=== PATIENT | female | born 1980 | race Caucasian/White ===

== ENCOUNTER 2017-07-14 17:52 | Emergency (ER) | payer MEDICAID ==
[~2017-07-14] VITALS: Ht 157.5 cm; Wt 99.8 kg
[2017-07-14 18:16] VITALS: BP 151/90
--- NOTE | 2017-07-14 19:33 | NUR ---
Patient to bed 05.
--- NOTE | 2017-07-14 19:40 | NUR ---
PATIENT PRESENTS TO ED WITH C/O LEFT ANKLE PAIN . PT DENIES N/V/D; SKIN IS PINK/WARM/DRY; AAOX4 WITH EVEN AND STEADY GAIT; LUNGS CLEAR BL; HR EVEN AND REGULAR; PT DENIES ANY FEVER, CP, SOB, OR COUGH AT THIS TIME; PATIENT STATES PAIN OF 7/10 AT THIS TIME; VSS; PATIENT POSITIONED FOR COMFORT; HOB ELEVATED; BEDRAILS UP X2; BED DOWN. ER MD MADE AWARE OF PT STATUS.
--- NOTE | 2017-07-14 19:45 | NUR ---
APARNA Pink evaluating patient at bedside.
[2017-07-14 21:00] VITALS: BP 142/85
--- NOTE | 2017-07-14 21:00 | NUR ---
Patient discharged with v/s stable. Written and verbal after care instructions given and explained. Patient verbalized understanding. Ambulatory with steady gait. All questions addressed prior to discharge. Advised to follow up with PMD.
== END 2017-07-14 21:00 | disposition home or self-care (01) ==
LOC: MED 17:52
DX: S82.65XA Nondisplaced fracture of lateral malleolus of left fibula, initial encounter for closed fracture (principal); W01.0XXA Fall on same level from slipping, tripping and stumbling without subsequent striking against object, initial encounter; Y93.89 Activity, other specified; Y92.009 Unspecified place in unspecified non-institutional (private) residence as the place of occurrence of the external cause; Y99.8 Other external cause status
CPT/HCPCS: 29515; 73610; 99283; 99284

== ENCOUNTER 2018-05-04 06:10 | Emergency (ER) | payer MEDICAID ==
[~2018-05-04] VITALS: Ht 157.5 cm; Wt 108.9 kg
[2018-05-04 06:18] VITALS: BP 127/100
--- NOTE | 2018-05-04 06:21 | NUR ---
TO BED # 2 AMBULATORY , REPORT GIVEN TO GIDEON GONZÁLES
--- NOTE | 2018-05-04 06:26 | NUR ---
Dr. Lemus evaluating patient at bedside.
[2018-05-04] MEDS ORDERED: FAMOTIDINE 20 MG TAB PO ONE (06:35)
[2018-05-04] MEDS ORDERED: diphenhydrAMINE 50 MG/ML VIAL IM ONE (06:35)
[2018-05-04] MEDS ORDERED: DEXAMETHASONE 10 MG/ML VIAL IM ONE (06:35)
--- NOTE | 2018-05-04 06:58 | NUR ---
38Y/F C/O RASH S/P TATTOO LAST WEEK , RED RAISED BUMPS NOTED TO CHEST AREA AND REDNESS TO CHIN AREA. PT DENIES SOB, CHEST PAIN. PT STATES SHE GOT A TATTOO LAST WEEK AND HAS NOTICIED A RASH TO GENERALIZED CHEST AREA. NO PMH, NKDA
--- NOTE | 2018-05-04 07:20 | NUR ---
Pt report given to ELIECER OLEA . Transfer of care at this time.
--- NOTE | 2018-05-04 07:20 | NUR ---
RECEIVED REPORT FROM GIDEON GONZÁLES FOR CONTINUITY OF CARE. PT TALKING WITH FAMILY AT BEDSIDE IN NO APPEARENT DISTRESS. WILL CONTINUE TO MONITOR.
[2018-05-04 07:45] VITALS: BP 128/94
--- NOTE | 2018-05-04 07:45 | NUR ---
Patient discharged with v/s stable. Written and verbal after care instructions given and explained. Patient alert, oriented and verbalized understanding of instructions. Ambulatory with steady gait. All questions addressed prior to discharge. ID band removed. Patient advised to follow up with PMD. Rx of PEPCID 20MG, PREDNISONE 50MG, [id number] given. Patient educated on indication of medication including possible reaction and side effects. Opportunity to ask questions provided and answered.
== END 2018-05-04 07:45 | disposition home or self-care (01) ==
LOC: MED 06:10
DX: L29.9 Pruritus, unspecified (principal)
CPT/HCPCS: 96372; 99284; J1100; J1200

== ENCOUNTER 2019-10-07 10:30 | Emergency (ER) | payer MEDICAID ==
[~2019-10-07] VITALS: Ht 157.5 cm; Wt 104.3 kg
[2019-10-07 10:42] VITALS: BP 147/102
--- NOTE | 2019-10-07 10:51 | NUR ---
PATIENT AMBULATE TO BED 9.
--- NOTE | 2019-10-07 10:55 | NUR ---
PT C/O R HIP PAIN THAT RADIATES TO R KNEE X 3 DAYS. PT STATES PAIN "FEEL LIKE AN BURN" AND RATES PAIN 7/10 AT THIS TIME AND STATES, "IT HURTS TO PUT PRESSURE ON IT". PT DENIES INJURY OR TRAUMA TO HIP AND KNEE. NO REDNESS OR DEFORMITIES NOTED AT R KNEE. PT POSITONED FOR COMFORT. ER MD TO SEE PT. ALLERGY: SEASONAL HX: DENIES RX: DENIES
--- NOTE | 2019-10-07 11:18 | NUR ---
Patient being evaluated by ER MD RAMIREZ at bedside.
[2019-10-07] MEDS ORDERED: KETOROLAC 30 MG/ML VIAL IM ONE (11:30)
[2019-10-07 13:14] VITALS: BP 137/84
--- NOTE | 2019-10-07 13:14 | NUR ---
Patient discharged with v/s stable. Written and verbal after care instructions given and explained. Pt encouraged to rest, ice right knee 3-4 times a day. Pt also instructed to alternate between naproxen and tylenol. Patient alert, oriented and verbalized understanding of instructions. Ambulatory with steady gait. All questions addressed prior to discharge. ID band removed. Patient advised to follow up with PMD. Rx of NAPROSYN 500MG was given. Patient educated on indication of medication including possible reaction and side effects. Opportunity to ask questions provided and answered.
== END 2019-10-07 13:14 | disposition home or self-care (01) ==
LOC: MED 10:30
DX: S83.91XA Sprain of unspecified site of right knee, initial encounter (principal); M54.2 Cervicalgia; J45.909 Unspecified asthma, uncomplicated; X58.XXXA Exposure to other specified factors, initial encounter; Y93.89 Activity, other specified; Y92.89 Other specified places as the place of occurrence of the external cause; Y99.8 Other external cause status
CPT/HCPCS: 73562; 96372; 99283; J1885

== ENCOUNTER 2019-11-28 12:28 | Emergency (ER) | payer MEDICAID ==
[~2019-11-28] VITALS: Ht 157.5 cm; Wt 99.8 kg
[2019-11-28 12:49] VITALS: BP 160/101
--- NOTE | 2019-11-28 12:55 | NUR ---
WAIT AT LOBBY.
--- NOTE | 2019-11-28 14:58 | NUR ---
PT AMBULATED TO ER BED 04
[2019-11-28 15:41] VITALS: BP 124/75
== END 2019-11-28 15:37 | disposition home or self-care (01) ==
LOC: MED 12:28
DX: L25.9 Unspecified contact dermatitis, unspecified cause (principal)
CPT/HCPCS: 99283

== ENCOUNTER 2020-03-27 06:28 | Emergency (ER) | payer MEDICAID ==
[~2020-03-27] VITALS: Ht 157.5 cm; Wt 99.8 kg
[2020-03-27 06:35] VITALS: BP 123/91
--- NOTE | 2020-03-27 06:43 | NUR ---
39 Y/O FEMALE C/O FACIAL RASH AROUND THE EYES, ON CHEEKS, AND UNDER CHIN. 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 PT DENIES CHANGNING HER FACIAL HYGIENE ROUTINE. PT DENIES ANY TRAUMA. PT STATES LAST FLARE UP WAS APPROXIMATELY 1 YEAR AGO. PT TOOK ZYRTEC 10MG AT 430AM THIS MORNING . PT TALKING IN FULL SENTENCES, AIRWAY PATENT, PT 100% O2 SAT ON ROOM AIR, RR 18 EVEN AND UNLABORED . DENIES N/V/D; AAOX4 WITH EVEN AND STEADY GAIT; PT DENIES ANY FEVER, CP, SOB, OR COUGH AT THIS TIME; PATIENT STATES PAIN OF 5/10 AT THIS TIME; VSS; PATIENT SITTING IN CHAIR ; MEDICAL HX: ASTHMA NKA
[2020-03-27] MEDS ORDERED: DEXAMETHASONE 10 MG/ML VIAL IM ONE (07:10)
--- NOTE | 2020-03-27 07:21 | NUR ---
MEDICATED WRITTEN---PT SITTING AT BEDSIDE CHAIR---NO ACTIVE SCRATCHING AWAITS DISPO HOME
[2020-03-27 07:32] VITALS: BP 123/91
--- NOTE | 2020-03-27 07:32 | NUR ---
Patient discharged with v/s stable. Written and verbal after care instructions given and explained. Patient alert, oriented and verbalized understanding of instructions. Ambulatory with to car. All questions addressed prior to discharge. ID band removed. Patient advised to follow up with PMD. Rx of KETOTIFEN FUMARATE/ [facility] HYDROCORTISONE given. Patient educated on indication of medication including possible reaction and side effects. Opportunity to ask questions provided and answered.
== END 2020-03-27 07:32 | disposition home or self-care (01) ==
LOC: MED 06:28
DX: H10.13 Acute atopic conjunctivitis, bilateral (principal); J30.2 Other seasonal allergic rhinitis; J45.909 Unspecified asthma, uncomplicated
CPT/HCPCS: 96372; 99283; J1100

== ENCOUNTER 2020-08-28 12:23 | Emergency (ER) | payer MEDICAID ==
[~2020-08-28] VITALS: Ht 157.5 cm; Wt 106.4 kg
[2020-08-28 12:26] VITALS: BP 146/80
--- NOTE | 2020-08-28 12:34 | NUR ---
PATIENT AMBULATED TO ER BED 07
--- NOTE | 2020-08-28 12:36 | NUR ---
Dr Esposito at bedside examining pt
--- NOTE | 2020-08-28 12:46 | NUR ---
40 Y/O FEMALE C/O RIGHT SHOULDER PAIN S/P FALLING ON RIGHT SHOULDER LAST NIGHT. PATIENT STATES SHE EXTENDED SHOULDER OUT AND ABOUT HEAD AND FELL, SHE STATES SHE FEELS LIKE SHE TORE SOMETHING. PATIENT IS ABLE TO PERFORM ROM WITH PAIN. RADIAL PULSES PRESENT. NO OBVIOUS DEFORMITY NOTED.
[2020-08-28] MEDS: KETOROLAC 30 MG/ML VIAL IM ONE (12:58)
--- NOTE | 2020-08-28 13:14 | NUR ---
PT PLACED IN RIGHT SHOULDER SLING
== END 2020-08-28 13:20 | disposition home or self-care (01) ==
LOC: MED 12:23
DX: S43.491A Other sprain of right shoulder joint, initial encounter (principal); J45.909 Unspecified asthma, uncomplicated; W18.39XA Other fall on same level, initial encounter; Y93.89 Activity, other specified; Y92.89 Other specified places as the place of occurrence of the external cause; Y99.8 Other external cause status
CPT/HCPCS: 73030; 96372; 99283; J1885; Q0092

== ENCOUNTER 2021-04-09 14:10 | Emergency (ER) | payer MEDICAID ==
[~2021-04-09] VITALS: Ht 157.5 cm; Wt 108.9 kg
[2021-04-09 14:24] VITALS: BP 143/117
--- NOTE | 2021-04-09 15:42 | NUR ---
40 y.o female presents to the ED with Right mouth pain. 6/10 pain thats pressure radiating to the right ear. started last night. right mouth area is swollen, has some pain with palpation of the mouth. heart rate elevated. AAOx4 PMH: N/A Allergies: NKA
--- NOTE | 2021-04-09 15:42 | NUR ---
Patient ambulated to bed 08 with steady gait.
--- NOTE | 2021-04-09 15:59 | NUR ---
Dr. Canela is evaluating the patient at bedside.
[2021-04-09] MEDS ORDERED: ACET-8386 PO (16:05)
[2021-04-09] MEDS ORDERED: NAPR-1704 PO (16:05)
[2021-04-09] MEDS ORDERED: PENI500T20 PO (16:06)
[2021-04-09 16:14] VITALS: BP 127/64
--- NOTE | 2021-04-09 16:15 | NUR ---
Patient discharged with v/s stable. Written and verbal after care instructions given and explained. Patient alert, oriented and verbalized understanding of instructions. Ambulatory with steady gait. All questions addressed prior to discharge. ID band removed. Patient advised to follow up with PMD. Rx of NORCO, NAPROXEN, AND PENICILLIN given. Patient educated on indication of medication including possible reaction and side effects. Opportunity to ask questions provided and answered.
== END 2021-04-09 16:15 | disposition home or self-care (01) ==
LOC: MED 14:10
DX: K05.319 Chronic periodontitis, localized, unspecified severity (principal); R03.0 Elevated blood-pressure reading, without diagnosis of hypertension; J45.909 Unspecified asthma, uncomplicated; Z79.899 Other long term (current) drug therapy
CPT/HCPCS: 99283

== ENCOUNTER 2023-11-16 20:58 | Emergency (ER) | payer MEDICAID ==
[~2023-11-16] VITALS: Ht 157.5 cm; Wt 86.2 kg
[~2023-11-16 20:58] MED LIST: ACET-8905 PO; NAPR-1704 PO; PENI500T20 PO
[2023-11-16 21:16] VITALS: BP 115/70; PULSE 87; RESP 20; TEMP 97; O2SAT 98
== END 2023-11-16 23:52 | disposition left against medical advice (07) ==
LOC: MED 20:58
DX: R07.9 Chest pain, unspecified (principal); Z53.21 Procedure and treatment not carried out due to patient leaving prior to being seen by health care provider
CPT/HCPCS: 93005; 99281